=== PATIENT | female | born 1955 | race Two or more races ===

== ENCOUNTER 2022-09-15 09:05 | Outpatient (OUT) | payer MEDICARE, OTHER, SELFPAY ==
[2022-09-15 09:47] LABS: Estimated Average Glucose 114 mg/dL; Glycohemoglobin A1C 5.6 % (4.5-6.2)
[2022-09-15 09:59] LABS: Basophils Absolute Auto 0.1 10^3/uL (0.0-0.1); Basophils Percent Auto 0.8 % (0.2-2.0); Eosinophils Absolute Auto 0.1 10^3/uL (0.0-0.7); Eosinophils Percent Auto 1.8 % (0.9-7.0); Hematocrit 41.6 % (36.0-48.0); Hemoglobin 14.1 g/dL (12.0-16.0); Immature Granulocytes Abs Auto 0.04 10^3/uL (0.00-0.03); Immature Granulocytes Pct Auto 0.6 % (0.0-0.5); Lymphocytes Absolute Auto 1.7 10^3/uL (1.2-3.8); Lymphocytes Percent Auto 25.2 % (20.5-60.0); Mean Corpuscular HGB Conc 33.9 g/dL (29.9-35.2); Mean Corpuscular Hemoglobin 31.5 pg (26.7-34.0); Mean Corpuscular Volume 93.1 fL (81.0-99.0); Monocytes Absolute Auto 0.5 10^3/uL (0.3-0.8); Monocytes Percent Auto 7.4 % (1.7-12.0); Neutrophils Absolute Auto 4.3 10^3/uL (1.4-6.5); Neutrophils Percent Auto 64.2 % (43.0-75.0); Platelet Count 231 10^3/uL (150-450); Red Blood Count 4.47 10^6/uL (4.20-5.40); Red Cell Distribution Width 14.6 % (11.0-15.0); White Blood Count 6.6 10^3/uL (4.0-11.0)
[2022-09-15 10:06] LABS: Alanine Aminotransferase 21 U/L (14-59); Albumin Globulin Ratio 1.1; Albumin Level 3.7 g/dL (3.4-5.0); Alkaline Phosphatase 127 U/L (46-116); Anion Gap 11.6; Aspartate Amino Transferase 17 U/L (15-37); BUN Creatinine Ratio 20.5; Bilirubin Total 0.3 mg/dL (0.2-1.0); Calcium 9.6 mg/dL (8.5-10.1); Carbon Dioxide 28.2 mmol/L (21.0-32.0); Chloride 105 mmol/L (98-107); Estimated GFR (African America >60 (>=60); Estimated GFR (Non-African Ame >60 (>=60); Globulin 3.5 g/dL; Glucose 102 mg/dL (74-106); Potassium 4.8 mmol/L (3.5-5.1); Sodium 140 mmol/L (136-145); Total Protein 7.2 g/dL (6.4-8.2)
[2022-09-15 10:15] LABS: Chol HDL Ratio 3.9; Cholesterol 212 mg/dL (<=200); Free T3 2.52 pg/mL (2.18-3.98); HDL Cholesterol 55 mg/dL (40-60); Thyroid Stimulating Hormone 2.111 uIU/mL (0.358-3.740); Triglycerides 84 mg/dL (<=150); VLDL CHOLESTEROL 16.8 mg/dL
== END 2022-09-15 09:06 | disposition home or self-care (01) ==
LOC: LAB 09:11
PROVIDERS: PCP Family Medicine; Visit Provider Family Medicine
DX: R07.9 Chest pain, unspecified (principal); J44.9 Chronic obstructive pulmonary disease, unspecified; E78.5 Hyperlipidemia, unspecified; R73.09 Other abnormal glucose
CPT/HCPCS: 36415; 80053; 80061; 83036; 84436; 84443; 84481; 85025

== ENCOUNTER 2022-09-24 13:28 | Outpatient (OUT) | payer MEDICARE, OTHER, SELFPAY ==
--- NOTE | 2022-09-24 13:31 | CT_ITS ---
[address] [address] Patient Name: DESTIN SINHA MRN: [id number] date: 1955 Sex: F Assigned Patient Location: CT Current Patient Location: Accession/Order Number: [id number] Exam Date: 09/24/2022 13:35 Report Date: 09/27/2022 06:28 At the request of: MAUREEN MONTOYA Procedure: CT lung screening low-dose EXAMINATION: CT lung screening low-dose HISTORY: Chest pain R07.9, COPD J44.9 COMPARISON: No relevant comparison available. TECHNIQUE: Axial, Coronal, and Sagittal images were created without the administration of IV contrast material. Dose reduction techniques were achieved by using automated exposure control and/or adjustment of mA and/or kV according to patient size and/or use of iterative reconstruction technique. FINDINGS: LUNGS: 4 mm nodule within right lower lobe superior segment adjacent the major fissure. Minimal emphysematous changes. Mild scarring within lung bases; no acute infiltrates. PLEURA: No mass, effusion, or pneumothorax. VASCULATURE: No abnormality. ANKIT: A few small calcified lymph nodes on right. MEDIASTINUM: No mass or pathologic adenopathy. CARDIAC: No enlargement, pericardial thickening, or significant calcification. AORTA: No aneurysm or dissection. CHEST WALL: No mass or axillary adenopathy BONES: No bone lesion or fracture. LIMITED ABDOMEN: Several stones within gallbladder. Limited images of the upper abdomen. OTHER: Negative. CT/CT lung screening low-dose IMPRESSION: 1. Lung-RADS 2- Benign Appearance or Behavior. Nodules with a very low likelihood of becoming a clinically active cancer due to size or lack of growth. Follow-up CT Chest in 1 year. 2. Cholelithiasis. Electronically authenticated by: DAVIDA PANTOJA Date: 09/27/2022 06:28
== END 2022-09-24 13:29 | disposition home or self-care (01) ==
LOC: CT 13:28
PROVIDERS: PCP Family Medicine; Visit Provider Family Medicine
DX: F17.210 Nicotine dependence, cigarettes, uncomplicated (principal); R07.9 Chest pain, unspecified; J44.9 Chronic obstructive pulmonary disease, unspecified
CPT/HCPCS: 71271

== ENCOUNTER 2022-09-27 08:29 | Outpatient (OUT) | payer MEDICARE, OTHER, SELFPAY ==
--- NOTE | 2022-09-27 07:45 | NM_ITS ---
Patient: DESTIN SINHA Exam Date: 09/27/2022 : 1955 Gender:F Ordering : DR Andrea Giles . Admission #: [id number] Family : Order #: [id number] CLICK HERE TO VIEW EXAM RADIOLOGY REPORT PROCEDURE: NM VALENTIN PERF SPECT REST STR COMPARISON: None. INDICATIONS: CHEST PAIN TECHNIQUE: Exam Description: Stress/Rest one day protocol gated SPECT Rest Imagin.1 mCi Tc-99m Cardiolite IV on 09/27/2022 Stress Imaging 30.7 mCi Tc-99m Cardiolite IV on 09/27/2022 Exercise Protocol: 0.4 mg Lexiscan given IV Heart Rate (bpm): Rest: 65 Max: 136 PMHR: 88 Blood Pressure: Rest: 160/90 Max: 236/90 Exercise Time: Minutes: 5 Seconds: 45 Stage Reached: Stage: 2 Mets 7.0 Symptoms: Rest and peak stress ECG findings were normal and the exercise portion of the study was abnormal per attending physician Dr. Chris woodruff toelevated blood pressure. For more details please see separate cardiac stress test report. FINDINGS: QUALITY OF STUDY: Excellent. PERFUSION DEFECT: None. LOCATION: N/A SIZE: N/A. SEVERITY: N/A. TYPE: N/A. WALL MOTION: Normal. LV SIZE: Normal. 47 mL. TID / TCD: None; 0.7 LVEF: Normal. Calculated EF 85%. SUMMARY: Myocardial perfusion imaging study is NORMAL. CONCLUSION: 1. Normal nuclear medicine myocardial perfusion scan. Dictated by: Mark Mireles M.D. on 09/28/2022 at 12:02 Approved by: Mark Mireles M.D. on 09/28/2022 at 12:05
--- NOTE | 2022-09-27 12:13 | P.STRESS_ITS ---
Stress Test Stress Test Allergies Allergy/AdvReac Type Severity Reaction Status Date / Time acetaminophen Allergy Unknown Swelling Unverified 09/27/22 08:38 [From Darvocet-N 100] of the Eye codeine Allergy Unknown Hives Unverified 09/27/22 08:38 propoxyphene [From Darvon] Allergy Unknown Swelling Unverified 09/27/22 08:38 of the Eye Requesting physician: Andrea Giles Procedure: Exercise Cardiolite stress test General Information: Reason for Stress Test: Chest pain Cardiac History and Risk Factors: No personal history listed. Siblings had MIs, father s/p CABG. Resting 12 - Lead Electrocardiogram: Rate & rhythm: Normal sinus at a rate of 65. [place]: Left deviation T-waves: Inverted in aVL ST-segments: Normal orientation Other findings: Incomplete RBBB Stress Test: Protocol: Jorge protocol was followed, with injection of Cardiolite once target heart rate was achieved. Exercise capacity: Fair exercise capacity. Total exercise time of 5minutes 45seconds reached Jorge stage 2 at 2.5MPH, 12% grade, & 7 METs. Blood pressure: Initial: 160/90, Maximum: 236/90, Recovery: 176/82 Rate & rhythm: Patient remained in sinus rhythm during the exercise and recovery portions of the study.? The maximum heart rate was 136, which was 88% of the maximum predicted heart rate 153. ST-segments & T-waves: There were no T-wave changes and no ST-segment changes when compared to the baseline EKG. Patient response/symptoms: There were no symptoms similar to the chief complaint. Interpretation: Normal exercise stress test. No reproducible symptoms. Elevated blood pressure readings during/after exercise (max 236/90). Cardiolite imaging interpretation will be reported separately. Clinical correlation required.?
== END 2022-09-27 08:30 | disposition home or self-care (01) ==
LOC: NM 08:29
PROVIDERS: PCP Family Medicine; Visit Provider Family Medicine
DX: R07.9 Chest pain, unspecified (principal); J44.9 Chronic obstructive pulmonary disease, unspecified
CPT/HCPCS: 78452; 93017; A9500

== ENCOUNTER 2023-08-08 09:15 | Outpatient (OUT) | payer MEDICARE, SELFPAY ==
--- NOTE | 2023-08-08 09:40 | XR_ITS ---
The [address] [address] Patient Name: DESTIN SINHA MRN: [id number] date: 1955 Sex: F Assigned Patient Location: LAB Current Patient Location: LAB Accession/Order Number: [id number] Exam Date: 08/08/2023 09:43 Report Date: 08/08/2023 14:00 At the request of: MAUREEN MONTOYA Procedure: XR chest 2V EXAMINATION: XR chest 2V HISTORY: Chest Pain R07.9, Chronic Obstructive Pulmonary Disease COMPARISON: CT LUNG CANCER SCREENING 09/24/2022 FINDINGS: LUNGS: 5 mm nodule within right midlung just cephalad to the hilum. Chronic blunting of right lateral costophrenic angle. Left lung is well-expanded and clear. VASCULATURE: No increased pulmonary vasculature. PLEURA: No pneumothorax, effusion, or pleural thickening. CARDIAC: No cardiomegaly or cardiac silhouette abnormality. MEDIASTINUM: No visible mass or adenopathy. BONES: No fracture or visible bone lesion. OTHER: Negative. XR/XR chest 2V IMPRESSION: 1. No appreciable acute abnormality. 2. Stable right upper lung small dense nodule, likely a granuloma. 3. Stable chronic blunting of right lateral costophrenic angle. Electronically authenticated by: DAVIDA PANTOJA Date: 08/08/2023 14:00
[2023-08-08 09:42] LABS: Basophils Percent Auto 0.7 % (0.2-2.0); Eosinophils Absolute Auto 0.1 10^3/uL (0.0-0.7); Eosinophils Percent Auto 1.8 % (0.9-7.0); Hematocrit 38.1 % (36.0-48.0); Hemoglobin 12.5 g/dL (12.0-16.0); Immature Granulocytes Abs Auto 0.02 10^3/uL (0.00-0.03); Immature Granulocytes Pct Auto 0.3 % (0.0-0.5); Lymphocytes Absolute Auto 1.4 10^3/uL (1.2-3.8); Lymphocytes Percent Auto 23.1 % (20.5-60.0); Mean Corpuscular HGB Conc 32.8 g/dL (29.9-35.2); Mean Corpuscular Hemoglobin 30.8 pg (26.7-34.0); Mean Corpuscular Volume 93.8 fL (81.0-99.0); Mean Platelet Volume 9.3 fL (9.5-13.5); Monocytes Absolute Auto 0.5 10^3/uL (0.3-0.8); Monocytes Percent Auto 8.3 % (1.7-12.0); Neutrophils Percent Auto 65.8 % (43.0-75.0); Platelet Count 241 10^3/uL (150-450); Red Blood Count 4.06 10^6/uL (4.20-5.40); Red Cell Distribution Width 14.2 % (11.0-15.0)
[2023-08-08 12:33] LABS: Alanine Aminotransferase 21 U/L (14-59); Albumin Globulin Ratio 0.8; Alkaline Phosphatase 111 U/L (46-116); Anion Gap 12.5; Aspartate Amino Transferase 17 U/L (15-37); BUN Creatinine Ratio 18.8; Bilirubin Total 0.2 mg/dL (0.2-1.0); Calcium 9.2 mg/dL (8.5-10.1); Carbon Dioxide 27.7 mmol/L (21.0-32.0); Chloride 105 mmol/L (98-107); Chol HDL Ratio 4.7; Cholesterol 198 mg/dL (<=200); Estimated GFR (African America >60 (>=60); Estimated GFR (Non-African Ame >60 (>=60); Free T3 2.41 pg/mL (2.18-3.98); Globulin 3.8 g/dL; Glucose 92 mg/dL (74-106); HDL Cholesterol 42 mg/dL (40-60); LDL Cholesterol Calculated 136.6 mg/dL; Potassium 4.2 mmol/L (3.5-5.1); Sodium 141 mmol/L (136-145); Thyroid Stimulating Hormone 3.305 uIU/mL (0.358-3.740); Total Protein 6.8 g/dL (6.4-8.2); Triglycerides 97 mg/dL (<=150); VLDL CHOLESTEROL 19.4 mg/dL
[2023-08-08 12:42] LABS: Estimated Average Glucose 105 mg/dL; Glycohemoglobin A1C 5.3 % (4.5-6.2)
== END 2023-08-08 09:16 | disposition home or self-care (01) ==
LOC: LAB 09:17
PROVIDERS: PCP Family Medicine; Visit Provider Family Medicine
DX: J44.9 Chronic obstructive pulmonary disease, unspecified (principal); R07.9 Chest pain, unspecified; E78.5 Hyperlipidemia, unspecified; R73.09 Other abnormal glucose; D64.9 Anemia, unspecified; E55.9 Vitamin D deficiency, unspecified
CPT/HCPCS: 36415; 71046; 80053; 80061; 82306; 83036; 83540; 84436; 84443; 84481; 85025

== ENCOUNTER 2023-08-16 10:32 | Outpatient (OUT) | payer MEDICARE, OTHER, SELFPAY ==
--- NOTE | 2023-08-16 10:34 | MM_ITS ---
Patient Name: DESTIN SINHA MR#: [id number] : 1955 Exam Date: 08/16/2023 Ordering Doctor: DR Andrea Giles . RADIOLOGY REPORT PROCEDURE: MM TOMOSYNTHESIS SCREENING BI COMPARISON: MG MAMM SCREEN TARUN W CAD, 05/03/2016. MG MAMM SCREEN TARUN W CAD, 08/31/2019. INDICATIONS: Screening Calculator Name NCI Breast Cancer Risk Assessment Tool 5 Year Breast Cancer Risk 1.20% Lifetime Breast Cancer Risk 4.20% Personal Breast Cancer No Personal Ovarian Cancer No Treatments right side part of right lung removed, chemotherapy Family Cancers Mother with lung cancer at age ~74; Father with throat cancer at age ~78. LOCATION: The [facility] BREAST COMPOSITION: There are scattered areas of fibroglandular density. FINDINGS: DIAGNOSTIC CATEGORY 2--BENIGN FINDING. NO CHANGE FROM COMPARISON. Scattered benign-appearing calcifications are present. Scattered benign-appearing lymph nodes are present. RIGHT BREAST: No significant suspicious finding. LEFT BREAST: No significant suspicious finding. RECOMMENDATIONS: ROUTINE MAMMOGRAM AND CLINICAL EVALUATION IN 12 MONTHS. PLEASE NOTE: A NORMAL MAMMOGRAM DOES NOT EXCLUDE THE POSSIBILITY OF BREAST CANCER. A CLINICALLY SUSPICIOUS PALPABLE LUMP SHOULD BE BIOPSIED. Dictated by: Desmond García MD on 08/16/2023 at 11:40 Approved by: Desmond García MD on 08/16/2023 at 11:42
== END 2023-08-16 10:33 | disposition home or self-care (01) ==
LOC: MAMMO 10:32
PROVIDERS: PCP Family Medicine; Visit Provider Family Medicine
DX: Z12.31 Encounter for screening mammogram for malignant neoplasm of breast (principal); Z80.1 Family history of malignant neoplasm of trachea, bronchus and lung; Z80.8 Family history of malignant neoplasm of other organs or systems
CPT/HCPCS: 77063; 77067

== ENCOUNTER 2024-03-14 09:17 | Outpatient (OUT) | payer MEDICARE, OTHER, SELFPAY ==
[2024-03-14 10:05] LABS: Estimated Average Glucose 114 mg/dL; Glycohemoglobin A1C 5.6 % (4.5-6.2)
[2024-03-14 10:09] LABS: Basophils Percent Auto 0.4 % (0.2-2.0); Eosinophils Absolute Auto 0.1 10^3/uL (0.0-0.7); Eosinophils Percent Auto 0.7 % (0.9-7.0); Hematocrit 45.7 % (36.0-48.0); Hemoglobin 15.4 g/dL (12.0-16.0); Immature Granulocytes Abs Auto 0.03 10^3/uL (0.00-0.03); Immature Granulocytes Pct Auto 0.3 % (0.0-0.5); Lymphocytes Absolute Auto 1.9 10^3/uL (1.2-3.8); Lymphocytes Percent Auto 18.8 % (20.5-60.0); Mean Corpuscular HGB Conc 33.7 g/dL (29.9-35.2); Mean Corpuscular Volume 92.1 fL (81.0-99.0); Mean Platelet Volume 9.7 fL (9.5-13.5); Monocytes Absolute Auto 0.7 10^3/uL (0.3-0.8); Monocytes Percent Auto 6.9 % (1.7-12.0); Neutrophils Absolute Auto 7.3 10^3/uL (1.4-6.5); Neutrophils Percent Auto 72.9 % (43.0-75.0); Platelet Count 294 10^3/uL (150-450); Red Blood Count 4.96 10^6/uL (4.20-5.40); Red Cell Distribution Width 13.7 % (11.0-15.0)
[2024-03-14 10:19] LABS: Alanine Aminotransferase 19 U/L (14-59); Albumin Globulin Ratio 0.9; Albumin Level 3.7 g/dL (3.4-5.0); Alkaline Phosphatase 123 U/L (46-116); Anion Gap 13.8; Aspartate Amino Transferase 17 U/L (15-37); BUN Creatinine Ratio 16.5; Bilirubin Total 0.7 mg/dL (0.2-1.0); Calcium 9.9 mg/dL (8.5-10.1); Carbon Dioxide 27.7 mmol/L (21.0-32.0); Chloride 102 mmol/L (98-107); Chol HDL Ratio 3.9; Cholesterol 247 mg/dL (<=200); Estimated GFR (African America >60 (>=60 mL/min/1.73m^2); Estimated GFR (Non-African Ame 50 (>=60 mL/min/1.73m^2); Free T3 2.58 pg/mL (2.18-3.98); Globulin 4.2 g/dL; Glucose 110 mg/dL (74-106); HDL Cholesterol 64 mg/dL (40-60); Potassium 4.5 mmol/L (3.5-5.1); Sodium 139 mmol/L (136-145); Total Protein 7.9 g/dL (6.4-8.2); Triglycerides 93 mg/dL (<=150); VLDL CHOLESTEROL 18.6 mg/dL
== END 2024-03-14 09:18 | disposition home or self-care (01) ==
LOC: LAB 09:18
PROVIDERS: PCP Family Medicine; Visit Provider Family Medicine
DX: R07.9 Chest pain, unspecified (principal); J44.9 Chronic obstructive pulmonary disease, unspecified; C34.90 Malignant neoplasm of unspecified part of unspecified bronchus or lung; E78.5 Hyperlipidemia, unspecified; R53.83 Other fatigue; R73.09 Other abnormal glucose; I10 Essential (primary) hypertension; D64.9 Anemia, unspecified; E03.9 Hypothyroidism, unspecified
CPT/HCPCS: 36415; 80053; 80061; 83036; 83540; 84436; 84443; 84481; 85025

== ENCOUNTER 2024-03-22 09:07 | Outpatient (OUT) | payer MEDICARE, OTHER, SELFPAY ==
--- NOTE | 2024-03-22 09:00 | CA_ITS ---
Patient Name: DESTIN SINHA MR#: [id number] : 1955 Exam Date: 03/22/2024 Ordering Doctor: DR MAUREEN MONTOYA . ECHOCARDIOGRAM REPORT PROCEDURE: CA ECHO DOPPLER COMPLETE INDICATIONS: Murmur, COPD, lung cancer COMPARISON: None. DESCRIPTION: COMPLETE ECHOCARDIOGRAM Real-time transthoracic echocardiography with 2D, M-mode, spectral and color flow Doppler performed. QUALITY: Technical quality was good. LEFT VENTRICLE: Normal chamber size. Proximal septal hypertrophy (sigmoid septum). Normal systolic function. LV EF: Normal left ventricular ejection fraction, (>55%). DIASTOLIC: Normal diastolic function. ATRIAL SEPTUM: Visually appears intact. LEFT ATRIUM: Normal chamber size. RIGHT ATRIUM: Normal chamber size. RIGHT VENTRICLE: Normal chamber size. Normal systolic function. TRICUSPID VALVE: Normal mobility and thickness. No stenosis with trivial regurgitation. No evidence of pulmonary hypertension. RVSP 29 mmHg MITRAL VALVE: Normal mobility and thickness. No evidence of mitral valve stenosis. There is no mitral annular calcification. Trivial mitral regurgitation. AORTIC VALVE: Normal trileaflet appearance. No visible sclerosis. Normal leaflet mobility. No evidence of aortic valve stenosis. No aortic regurgitation. AORTIC ROOT: Normal diameter and appearance. Ascending aorta is normal in size. PULMONIC VALVE: Normal thickness and mobility. No stenosis. Trivial regurgitation. PERICARDIUM: No evidence of pericardial effusion. IVC: IVC is normal in size, does not collapse. PLEURA: CONCLUSION: 1. Normal ventricular size and systolic function. LVEF is 65%. 2. Normal diastolic function. 3. No significant valvular dysfunction. 4. Normal right sided pressures. Adult Echocardiography Procedure Report Left Ventricle LVEDD (3.7 - 5.6 cm): 3.22 cm LVESD (2.2 - 4.0 cm): 2.13 cm LVIVS thickness (0.6 - 1.2 cm): 1.57 cm LVPW thickness (0.5 - 1.0 cm): 0.86 cm e': 0.06 m/s E - e': 8.17 LVOT Max Gradient: 6.04 mm[Hg] LVOT Area (cm2): 1.23 m/s Peak Velocity (LVOT): 1.23 m/s Mean Velocity (LVOT): 0.78 m/s LVOT Diameter 2.25 cm Left Atrium LA Volume Index (2D A2C): 20.92 ml/m2 Left Atrium Systolic Dimension: 2.83 cm Mitral Valve MV E to A Ratio: 0.65 Mitral Valve A-Wave Peak Velocity: 0.70 m/s Mitral Valve E-Wave Peak Velocity: 0.45 m/s Right Ventricle Aorta AO Root Diam: 3.02 cm Ascending Ao Diam: 2.78 cm Aortic Valve AoV Area (Peak Erik): 3.56 cm2, 3.56 cm2 AoV Area (VTI): 3.60 cm2, 3.60 cm2 Peak Velocity(Antegrade Flow): 1.37 m/s Peak Gradient(Antegrade Flow): 7.49 mm[Hg] Mean Velocity(Antegrade Flow): 0.92 m/s Mean Gradient(Antegrade Flow): 3.80 mm[Hg] Velocity Time Integral: 25.97 cm Tricuspid Valve Peak Velocity (Regurgitant Flow): 2.26 m/s Pulmonic Valve Mean Gradient: 1.69 mm[Hg] Mean Velocity: 0.58 m/s Peak Velocity: 0.97 m/s, 1.13 m/s Peak Gradient: 5.08 mm[Hg], 3.73 mm[Hg] Right Atrium Right Atrium Systolic Pressure: 25.42 ml, 25.42 ml Dictated by: Malcolm Pedraza M.D. on 03/24/2024 at 15:20 Approved by: Malcolm Pedraza M.D. on 03/24/2024 at 15:23
--- NOTE | 2024-03-22 09:51 | CT_ITS ---
The [address] [address] Patient Name: DESTIN SINHA MRN: [id number] date: 1955 Sex: F Assigned Patient Location: CARD Current Patient Location: Accession/Order Number: [id number] Exam Date: 03/22/2024 09:55 Report Date: 03/23/2024 07:40 At the request of: MAUREEN MONTOYA Procedure: CT chest wo con EXAMINATION: CT chest wo con HISTORY: lung Cancer COMPARISON: CT lung screening 09/24/2022 TECHNIQUE: Axial, Coronal, and Sagittal images were created without the administration of IV contrast material. Dose reduction techniques were achieved by using automated exposure control and/or adjustment of mA and/or kV according to patient size and/or use of iterative reconstruction technique. FINDINGS: LUNGS: Stable 4 mm nodule within right lower lobe superior segment adjacent to the fissure fissure. Mild emphysematous changes bilaterally. PLEURA: No mass, effusion, or pneumothorax. VASCULATURE: No abnormality. ANKIT: A few calcified lymph nodes suggestive of chronic granulomatous disease. MEDIASTINUM: No mass or pathologic adenopathy. CARDIAC: No enlargement, pericardial thickening, or pericardial effusion. Coronary Artery calcifications: Coronary calcifications are mild. AORTA: No aneurysm or dissection. CHEST WALL: No mass or axillary adenopathy BONES: No bone lesion or fracture. LIMITED ABDOMEN: No suspicious findings. Limited images of the upper abdomen. OTHER: Negative. CT/CT chest wo con IMPRESSION: 1. Lung-RADS 2- Benign Appearance or Behavior. Nodules with a very low likelihood of becoming a clinically active cancer due to size or lack of growth. Follow-up CT Chest in 1 year. Electronically authenticated by: DAVIDA PANTOJA Date: 03/23/2024 07:40
== END 2024-03-22 09:08 | disposition home or self-care (01) ==
LOC: CARD 09:07
PROVIDERS: PCP Family Medicine; Visit Provider Family Medicine
DX: C34.90 Malignant neoplasm of unspecified part of unspecified bronchus or lung (principal); R01.1 Cardiac murmur, unspecified
CPT/HCPCS: 71250; 93306